=== PATIENT | male | born 1940 | race Hispanic/Latino ===

== ENCOUNTER 2019-09-24 16:42 | Emergency (ER) | payer MEDICARE ==
[~2019-09-24] VITALS: Ht 182.9 cm; Wt 90.3 kg
--- NOTE | 2019-09-24 19:27 | NUR ---
bed low, call light in reach
--- NOTE | 2019-09-24 19:27 | NUR ---
awaiting ct scan results
--- NOTE | 2019-09-24 19:33 | Diagnostic Imaging Report ---
EXAM: CT Pelvis and right hip without contrast INDICATION: Fall. COMPARISON: None. TECHNIQUE: Pelvis and right hip was scanned utilizing a multidetector helical scanner from the iliac crest to the pubic symphysis and to the right hip without administration of IV contrast. Coronal and sagittal reformations were obtained. Routine protocol was performed. IV CONTRAST: None. ORAL CONTRAST: None. RADIATION DOSE: Total DLP: 417 mGy*cm Estimated effective dose: (DLP x 0.015 x size factor) mSv COMPLICATIONS: None FINDINGS: Partially seen right total hip arthroplasty. Streak artifact limits evaluation of the adjacent bony and pelvic structures. No evidence of acute fracture or malalignment. Apparent tiny cortical lucency at the right lesser trochanter as seen on axial series 4, image 102 and coronal series 308, image 80 likely represents vascular foramen. Degenerative changes of the lower lumbar spine. Left-sided S2 Tarlov cyst is noted. Mild degenerative changes of the left hip and pubic symphysis. There is a sacral decubitus ulcer which extends to the level of the coccyx with a sclerotic appearance of the coccyx. Partially visualized bowel loops are unremarkable. Moderate to extensive atherosclerotic calcifications of the distal abdominal aorta and branch vessels. IMPRESSION: No evidence of acute fracture or malalignment. Sacral decubitus ulcer extending to the coccyx with associated sclerotic appearance of the coccyx, which may represent chronic osteomyelitis. Suggest clinical correlation. Signed by: Dr. Sarah Henson MD on 09/24/2019 7:30 PM
--- NOTE | 2019-09-24 20:01 | NUR ---
[facility] called-mike dispatcher- eta 45min
[2019-09-24 20:16] VITALS: BP 129/56
== END 2019-09-24 21:00 ==
LOC: ER 16:42
DX: M54.5 Low back pain (principal); M25.551 Pain in right hip; S70.01XA Contusion of right hip, initial encounter; W06.XXXA Fall from bed, initial encounter; Y92.128 Other place in nursing home as the place of occurrence of the external cause; L89.154 Pressure ulcer of sacral region, stage 4
CPT/HCPCS: 72192; 99283